=== PATIENT | male | born 1990 | race Asian ===

== ENCOUNTER 2023-01-02 19:23 | Emergency (ER) | payer OTHER, SELFPAY ==
[2023-01-02 19:33] VITALS: BP 139/93; PULSE 91; RESP 18; TEMP 36.7; O2SAT 98; BMI 29.2
--- NOTE | 2023-01-02 19:37 | ED_ITS ---
HPI - Back Pain/Injury General Chief Complaint: Back Pain/Injury Stated Complaint: 12/31 hurt lower back, pain, dif. rotating and walk Time Seen by Provider: 01/02/23 19:37 Source: patient History of Present Illness HPI Narrative: 32-year-old gentleman with history of depression, anxiety and mild intermittent asthma presents with acute onset low back pain. He describes working in the yard 48 hours ago and having some tightness across his low back that has prog ressed over the ensuing 48 hours to significant spasm in any tenderness with rotational movement. He was able to walk in after driving himself here. He states he saw a chiropractor yesterday who felt that his right hip was slightly off tried some minor adjustments that helped for a few minutes but did not persist. He took ibuprofen in the middle of the night and did not find it particularly useful. Has not had symptoms like this previously. He denies any recent spinal instrumentation, fevers, IV drug use or specific trauma. Related Data Previous Rx's Medication Instructions Recorded albuterol sulfate 90 mcg/actuation 2 puff INH Q4-6HP #1 ea 04/26/17 aerosol inhaler (Ventolin HFA) metoprolol succinate 25 mg 25 mg PO QDAY ##30 06/23/17 tablet,extended release 24 hr (Toprol XL) bupropion HCl 300 mg 24 hr tablet, 300 mg PO QDAY #30 tabs 10/20/17 extended release (Wellbutrin XL) fluoxetine 40 mg capsule 40 mg PO QDAY #30 caps 12/15/17 methylphenidate HCl 36 mg 36 mg PO QDAY ##30 12/15/17 tablet,extended release 24 hr propranolol 10 mg tablet 10 mg PO BIDP PRN #60 tabs 12/15/17 Allergies Allergy/AdvReac Type Severity Reaction Status Date / Time No Known Drug Allergies Allergy Unverified 02/09/18 14:00 Review of Systems Review of Systems Narrative: Pertinent positive and negative findings as per HPI Patient History Medical History ADHD (attention deficit hyperactivity disorder), predominantly hyperactive impulsive type Anxiety Depression Social History Smoking Status: Never smoker Smoking Status: Never smoker alcohol intake frequency: a few times a month Substance Use Type: marijuana Exam Initial Vital Signs Initial Vital Signs: Vital Signs Temperature 98.0 F 01/02/23 19:33 Pulse Rate 91 H 01/02/23 19:33 Respiratory Rate 18 01/02/23 19:33 Blood Pressure 139/93 H 01/02/23 19:33 Pulse Oximetry 98 01/02/23 19:33 Oxygen Delivery Method Room Air 01/02/23 19:33 General: Alert appropriate in no acute distress Respiratory: Able to speak in full sentences, no obvious respiratory distress Skin: No obvious rashes, warm and dry Neurologic: Grossly intact no obvious asymmetries or abnormalities. Reflexes are symmetrical bilaterally in lower extremities. There is no paresthesia appreciated. Spine: Moderate paraspinous muscle spasm from approximately T8-L2 bilaterally. No midline point tenderness. No flank pain. Psych: appropriate insight and affect, cooperative Course Vital Signs Vital signs: Vital Signs - 8 hr 01/02/23 19:33 Temperature 98.0 F Pulse Rate 91 H Respiratory Rate 18 Blood Pressure 139/93 H Pulse Oximetry 98 Oxygen Delivery Method Room Air MDM - Back Pain/Injury MDM Narrative Medical decision making narrative: CC: Acute bilateral low back pain Complicating co-morbidities: Depression Data collected from: patient Differential considered: Acute muscular spasm. Disc injury, the lack of any red flags I do not suspect epidural abscess, fractures including acute compression fractures. Exam documented above, pertinent findings include: Paraspinous muscle spasm without midline tenderness Imaging studies independently reviewed: Given history and physical, x-rays are not indicated today Discussion: Acute paraspinous spasm in the low thoracic to upper back range. Bilateral palpable on exam. He was given a shot of Toradol in the emergency department. Will be discharged home with a couple of tablets of oxycodone to use over the next 24 hours. Recommended ice and heat to help with muscle spasm, continue gentle activity and consideration of repeat chiropractic visit in a couple of days once spasm is improved. Questions are answered and he is safe for discharge home Discharge Plan Departure Patient Disposition: Home Clinical Impression: Acute back pain Instructions: DI for Back Spasm Activity Restrictions/Additional Instructions: Thank you for coming in today Fortunately, your history and exam are all very consistent with muscle spasm and do not suggest any acute life-threatening abnormalities or acute spinal where spinal cord injury. Typically pain is worse 24-48 hours after the injury, which means today for you. It typically improves over the next week. Using 400 mg of ibuprofen (2 [id number] pills) and 1 Tylenol every 6 hours can be very helpful in controlling pain. For severe pain you can use 400 mg of ibuprofen and 1 Percocet. Alternating ice and heat can help with breaking the muscle spasm. Continuing to be moderately active and at least walking will help get you back to more comfortable more quickly. Once the spasm isn't quite so bad, you might find that an additional chiropractic visit is more effective and longer lasting. If you find that you are getting worse or develop any new symptoms, please feel free to return to the emergency department for further evaluation. Prescriptions: No Action albuterol sulfate [Ventolin HFA] 90 MCG/PUFF HFA aerosol inhaler 2 puff INH Q4-6HP Qty: 1 1RF metoprolol succinate [Toprol XL] 25 MG tablet extended release 24 hr 25 mg PO QDAY Qty: 30 3RF bupropion HCl [Wellbutrin XL] 300 MG tablet extended release 24 hr 300 mg PO QDAY Qty: 30 1RF fluoxetine 40 MG capsule 40 mg PO QDAY Qty: 30 2RF methylphenidate HCl 36 MG tablet extended release 24hr 36 mg PO QDAY Qty: 30 0RF propranolol 10 MG tablet 10 mg PO BIDP PRNQty: 60 0RF Referrals: Camacho Thomas MD [Non-Staff] - Stand Alone Forms: Patient Portal/API
[2023-01-02] MEDS: KETOROLAC 30 MG/ML VIAL IM (19:55)
[2023-01-02] MEDS: OXYCODONE/APAP 5/325 PREPACK 1 BOTTLE MISC (19:55)
== END 2023-01-02 20:04 | disposition home or self-care (01) ==
PROVIDERS: Emergency Provider Emergency Medicine; Family Provider Physician Assistant
DX: M54.50 Low back pain, unspecified (principal)
CPT/HCPCS: 96372; 99283; J1885

== ENCOUNTER 2023-03-22 20:48 | Emergency (ER) | payer OTHER, SELFPAY ==
[2023-03-22 20:53] VITALS: BP 147/108; PULSE 75; RESP 16; TEMP 36.3; O2SAT 97; BMI 29.9
[2023-03-22 23:32] VITALS: BP 139/87; PULSE 68; RESP 16; O2SAT 99
[2023-03-23] VITALS: BP 149/97; PULSE 65; RESP 18; O2SAT 97
--- NOTE | 2023-03-23 00:35 | ED_ITS ---
HPI - Back Pain/Injury General Chief Complaint: Back Pain/Injury Stated Complaint: back spasms Time Seen by Provider: 03/22/23 23:59 Source: patient History of Present Illness HPI Narrative: Patient is a 32-year-old male history of depression anxiety presents today with right-sided flank pain. He reports that he was vacuuming when he instantly it spasm. It is not radiating hurts to breathe hurts to move. No nausea or vomiting. This happened to him once before it slowly got little bit better. He has an icy hot patch on there. He is not yet taken Tylenol or ibuprofen for it he says ibuprofen does not work. Related Data Previous Rx's Medication Instructions Recorded albuterol sulfate 90 mcg/actuation 2 puff INH Q4-6HP #1 ea 04/26/17 aerosol inhaler (Ventolin HFA) metoprolol succinate 25 mg 25 mg PO QDAY ##30 06/23/17 tablet,extended release 24 hr (Toprol XL) bupropion HCl 300 mg 24 hr tablet, 300 mg PO QDAY #30 tabs 10/20/17 extended release (Wellbutrin XL) fluoxetine 40 mg capsule 40 mg PO QDAY #30 caps 12/15/17 methylphenidate HCl 36 mg 36 mg PO QDAY ##30 12/15/17 tablet,extended release 24 hr propranolol 10 mg tablet 10 mg PO BIDP PRN #60 tabs 12/15/17 cyclobenzaprine 5 mg tablet 5 mg PO TID PRN muscle spasm #10 03/23/23 tabs hydrocodone 5 mg-acetaminophen 325 1 tab PO Q6H PRN pain #10 tabs 03/23/23 mg tablet Allergies Allergy/AdvReac Type Severity Reaction Status Date / Time No Known Drug Allergies Allergy Unverified 02/09/18 14:00 Review of Systems Review of Systems ROS Unobtainable: All systems reviewed & are unremarkable except as noted in HPI and below Patient History Medical History ADHD (attention deficit hyperactivity disorder), predominantly hyperactive impulsive type Anxiety Depression Social History Smoking Status: Never smoker Smoking Status: Never smoker alcohol intake frequency: a few times a month Substance Use Type: marijuana Exam Initial Vital Signs Initial Vital Signs: Vital Signs Temperature 97.4 F L 03/22/23 20:53 Pulse Rate 75 03/22/23 20:53 Respiratory Rate 16 03/22/23 20:53 Blood Pressure 147/108 H 03/22/23 20:53 Pulse Oximetry 97 03/22/23 20:53 Oxygen Delivery Method Room Air 03/22/23 20:53 GENERAL: Alert well-appearing 32-year-old male CARDIOVASCULAR: peripheral pulses in tact, cap refill <2 sec RESPIRATORY: No respiratory distress, speaks in full sentences without difficulty BACK: No vertebral tenderness no step-off left-sided pain reproducible to palpation EXTREMITIES: Normal range of motion, no clubbing or edema. Neurovascularly intact NEUROLOGICAL: Cranial nerves II through XII grossly intact. Normal gait and speech. SKIN: Warm, dry, no petechiae, no rashes or lesions. Course Orders Ordered: Discontinued Medications Hydrocodone Bitart/Acetaminophen (Hydrocodone/Acet 5/325 Prepack) [address] [facility] Stop: 03/23/23 00:40 Last Admin: 03/23/23 00:51 Dose: 1 bottle Documented By: CHRISTINE Cyclobenzaprine HCl (Cyclobenzaprine 10 Mg Prepack) 1 bottle [facility] SEEINSTR ONE Stop: 03/23/23 00:40 Last Admin: 03/23/23 00:51 Dose: 1 bottle Documented By: CHRISTINE Ketorolac Tromethamine (Ketorolac 30 Mg/Ml Vial) 30 mg IM NOW ONE Stop: 03/23/23 00:40 Last Admin: 03/23/23 00:51 Dose: 30 mg Documented By: CHRISTINE Vital Signs Vital signs: Vital Signs - 8 hr 03/22/23 20:53 03/22/23 23:32 03/23/23 00:00 Temperature 97.4 F L Pulse Rate 75 68 65 Respiratory Rate 16 16 18 Blood Pressure 147/108 H 139/87 149/97 H Pulse Oximetry 97 99 97 Oxygen Delivery Method Room Air Room Air Room Air MDM - Back Pain/Injury MDM Narrative Medical decision making narrative: 32-year-old male with left-sided pain with injury from vacuuming. Hurts to breathe and move musculoskeletal sprain. No numbness tingling or weakness in the leg no evidence of cauda equina. He is not had any change in bowel bladder habits. Discharge Plan Departure Patient Disposition: Home Clinical Impression: Back pain Instructions: DI for Back Spasm Activity Restrictions/Additional Instructions: *You have been diagnosed with back spasm *What to do: Increase activity as tolerated light stretches *Continue to take medications as directed --> [facility] Motrin 600 mg every 6 hours if needed for aref-ug-kzugrkdr pain [place] 1 tablet every 6 hours if needed for severe pain Flexeril 5 mg every 8 hours if needed for muscle spasm *Follow up with your primary care provider in 2-3 days or call [phone] *Return to ER if you should have increased back pain numbness tingling weakness and leg loss of bladder or any new, worsening or concerning symptoms CONTROLLED SUBSTANCE DISCHARGE (Narcotoic/benzodiazepine/Flexeril/Phenergan) 1. You have been prescribed narcotic medications, it does have acetaminophen/Tylenol/paracetamol in it, DO NOT TAKE MORE THAN 4,00mg in 24 hours of Tylenol. TRAMADOL DOES NOT CONTAIN TYLENOL 2. Please understand that we cannot provide further refills of narcotics, benzodiazepines or controlled substances through the ED and her pain management will need to be through your provider. 3. While on these medications you cannot drive or operate heavy machinery. 4. You cannot sign legal documents or perform any duties such as this. 5. As long as you're taking opiate pain medications he should also be taking a stool softener such as Colace, Dulcolax, MiraLAX or prune juice, to help avoid constipation. Prescriptions: New hydrocodone-acetaminophen 5-325 mg tablet 1 tab PO Q6H PRN (Reason: pain) Qty: 10 0RF cyclobenzaprine 5 mg tablet 5 mg PO TID PRN (Reason: muscle spasm) Qty: 10 0RF No Action albuterol sulfate [Ventolin HFA] 90 MCG/PUFF HFA aerosol inhaler 2 puff INH Q4-6HP Qty: 1 1RF metoprolol succinate [Toprol XL] 25 MG tablet extended release 24 hr 25 mg PO QDAY Qty: 30 3RF bupropion HCl [Wellbutrin XL] 300 MG tablet extended release 24 hr 300 mg PO QDAY Qty: 30 1RF fluoxetine 40 MG capsule 40 mg PO QDAY Qty: 30 2RF methylphenidate HCl 36 MG tablet extended release 24hr 36 mg PO QDAY Qty: 30 0RF propranolol 10 MG tablet 10 mg PO BIDP PRNQty: 60 0RF Referrals: ProviderMeek [Primary Care Provider] - Stand Alone Forms: Patient Portal/API
[2023-03-23] MEDS: CYCLOBENZAPRINE 10 MG PREPACK 1 BOTTLE MISC (00:51)
[2023-03-23] MEDS: HYDROCODONE/ACET 5/325 PREPACK 1 BOTTLE MISC (00:51)
[2023-03-23] MEDS: KETOROLAC 30 MG/ML VIAL IM (00:51)
== END 2023-03-23 00:59 | disposition home or self-care (01) ==
PROVIDERS: Emergency Provider Emergency Medicine; Family Provider Physician Assistant
DX: M54.9 Dorsalgia, unspecified (principal); M62.830 Muscle spasm of back
CPT/HCPCS: 96372; 99283; J1885

== ENCOUNTER 2024-01-08 21:52 | Emergency (ER) | payer OTHER, SELFPAY ==
[2024-01-08 21:57] VITALS: BP 148/100; PULSE 65; RESP 16; O2SAT 97
[2024-01-08 22:15] VITALS: TEMP 37
--- NOTE | 2024-01-08 22:48 | ED.NECK ---
HPI - Neck Pain/Injury General Chief Complaint: Neck Pain/Injury Stated Complaint: medication reaction Time Seen by Provider: 01/08/24 22:24 Source: patient, RN notes reviewed and old records reviewed Mode of arrival: Ambulatory Limitations: no limitations History of Present Illness HPI Narrative: 33-year-old male with history of hypertension, chronic migraines, ADHD who presents with concern for possible medication reaction. Patient was started on Ajovy injections, lamotrigine and sumatriptan 3 days ago. Patient has had Ajovy injections in the past and found that very helpful. He has been off of them for a couple of years. The other 2 medications or new to him. He is also on clonidine and propranolol and losartan as his other daily medications. Patient states he is just felt body aches all over, no fevers that he is aware of. No nasal congestion but a little bit of sore throat. He felt like the right side is a little bit more swollen than the left. He denies any chest pain or shortness of breath. He has had some mild nausea but no vomiting. He denies any other GI or urinary symptoms. He states there was a little bit of redness and itching at the site of where he had his injection for his Ajovy. Redness has improved but still little bit of itching and he feels generally itchy all over. No other rashes or skin changes. He has not had any mucous membrane issues or blistering. He states when he takes a shower the water feels very hot almost like he has a sunburn. Patient denies any major surgeries. No known drug allergies. No tobacco, alcohol or recreational drugs. His medications were prescribed by his primary care at [facility]. Related Data Previous Rx's Medication Instructions Recorded albuterol sulfate 90 mcg/actuation 2 puff INH Q4-6HP #1 ea 04/26/17 aerosol inhaler (Ventolin HFA) metoprolol succinate 25 mg 25 mg PO QDAY ##30 06/23/17 tablet,extended release 24 hr (Toprol XL) bupropion HCl 300 mg 24 hr tablet, 300 mg PO QDAY #30 tabs 10/20/17 extended release (Wellbutrin XL) fluoxetine 40 mg capsule 40 mg PO QDAY #30 caps 12/15/17 methylphenidate HCl 36 mg 36 mg PO QDAY ##30 12/15/17 tablet,extended release 24 hr propranolol 10 mg tablet 10 mg PO BIDP PRN #60 tabs 12/15/17 cyclobenzaprine 5 mg tablet 5 mg PO TID PRN muscle spasm #10 03/23/23 tabs hydrocodone 5 mg-acetaminophen 325 1 tab PO Q6H PRN pain #10 tabs 03/23/23 mg tablet Allergies Allergy/AdvReac Type Severity Reaction Status Date / Time No Known Drug Allergies Allergy Unverified 02/09/18 14:00 Review of Systems Review of Systems ROS Unobtainable: All systems reviewed & are unremarkable except as noted in HPI and below Patient History Medical History ADHD (attention deficit hyperactivity disorder), predominantly hyperactive impulsive type Anxiety Depression Social History Smoking Status: Never smoker Smoking Status: Never smoker alcohol intake frequency: a few times a month Substance Use Type: marijuana Exam Narrative Exam Narrative: GEN: well nourished, well appearing male, alert and oriented x 3, patient appears to be in mild distress. HEENT: Atraumatic, pupils are equal round reactive to light, extraocular movements are intact, nares are clear, TMs are clear with no fluid, there is no conjunctival pallor. Throat is clear without any exudates, erythema, tonsillar enlargement or uvular deviation, normal speech. Right cervical lymphadenopathy. HEART: Regular rate and rhythm without murmur, clicks, rubs. LUNGS:Lungs clear to auscultation, no wheezes, rales, crackles, chest moves symmetrically ABD:bowel sounds normal, soft, non-tender, no guarding, rebound, rigidity, no masses noted, no hepatosplenomegaly :No CVA tenderness MSCL: Non-tender, no muscle atrophy, muscles strength 5/5 upper and lower extremities, full range of motion, normal gait NEURO:CN 2-12 intact, sensation normal SKIN: No rash, erythema, no blisters or vesicles, no ecchymosis or other skin changes. Initial Vital Signs Initial Vital Signs: Vital Signs Pulse Rate 65 01/08/24 21:57 Respiratory Rate 16 01/08/24 21:57 Blood Pressure 148/100 H 01/08/24 21:57 Pulse Oximetry 97 01/08/24 21:57 Oxygen Delivery Method Room Air 01/08/24 21:57 Course Orders Ordered: ED Orders 01/08/24 22:21 Lamotrigine Lamictal Stat 01/08/24 23:29 Respiratory Panel (Film Array) Stat Strep Grp A by PCR Rapid Stat Discontinued Medications Dexamethasone (Dexamethasone 10 Mg/Ml Vial) 10 mg IV NOW ONE Stop: 01/08/24 23:10 Last Admin: 01/08/24 23:24 Dose: 10 mg Documented By: ANASTASIA Vital Signs Vital signs: Vital Signs - 8 hr 01/08/24 21:57 01/08/24 22:15 01/09/24 01:37 Temperature 98.6 F Pulse Rate 65 67 Respiratory Rate 16 16 Blood Pressure 148/100 H 127/86 Pulse Oximetry 97 98 Oxygen Delivery Method Room Air Room Air MDM - Neck Pain/Injury Lab Data Labs: Lab Results 01/08/24 Range/Units 23:29 Chlamy pneumoniae PCR Not detected (Not Detect) Adenovirus (PCR) Not detected (Not Detect) B.parapertussis DNA PCR Not detected (Not Detecte) Coronavirus OC43 (PCR) Not detected (Not Detect) Coronavirus HKU1 (PCR) Not detected (Not Detect) Coronavirus 229E (PCR) Not detected (Not Detect) SARS-CoV-2 (PCR) Not detected (Not Detecte) Coronavirus NL63 (PCR) Not detected (Not Detect) Human Metapneumovir PCR Not detected (Not Detect) Influenza Type A (PCR) Not detected (Not Detect) Influenza Type B (PCR) Not detected (Not Detect) M. pneumoniae (PCR) Not detected (Not Detect) Parainfluenza 1 (PCR) Not detected (Not Detect) Parainfluenza 2 (PCR) Not detected (Not Detect) Parainfluenza 3 (PCR) Not detected (Not Detect) Parainfluenza 4 (PCR) Not detected (Not Detect) RSV (PCR) Not detected (Not Detect) Entero/Rhino (PCR) Not detected (Not Detect) Group A Strep (PCR) Negative (Negative) MDM Narrative Medical decision making narrative: 33-year-old male with symptoms somewhat but sound like viral symptoms. Patient did start 3 new medications 1 he has had before. He noticed some itching at his injection site of his Ajovy no other redness. He does not appear to be having any sort of significant anaphylactic or allergic reaction. It has been going on for the past 2 days with no other changes. He noticed some swelling of the right side of his throat but none is visualized. Tonsils are not enlarged. Patient has a normal speech he states it has not rapidly progressive. Discussed with patient possible medication reaction versus viral prodrome versus other. We will give a dose of dexamethasone. Discussed holding his medications for several days and then restarting individually if rapid strep and respiratory panel are negative. Discharge Plan Departure Patient Disposition: Home Clinical Impression: Medication reaction Activity Restrictions/Additional Instructions: Follow up with your physician for recheck, talk with your physician about your symptoms. I did send lamotrigine or Lamictal level this is a send out lab and currently pending but unlikely to be elevated since she just started your new medication. Some of your symptoms are consistent with a viral illness but your rapid strep is negative, your respiratory panel is also negative. You can take Benadryl 1-2 tablets every 6 hours as needed for itching. There is a possibility of medication reaction, I would recommend stopping your medications and restarting them individually to see if you have recurrent symptoms. Please return for rapidly worsening symptoms fevers, swelling of your tongue airway or lips, new chest pain or shortness of breath, persistent vomiting, new rash or any blisters or vesicles or other new or concerning changes. Prescriptions: No Action albuterol sulfate [Ventolin HFA] 90 MCG/PUFF HFA aerosol inhaler 2 puff INH Q4-6HP Qty: 1 1RF metoprolol succinate [Toprol XL] 25 MG tablet extended release 24 hr 25 mg PO QDAY Qty: 30 3RF bupropion HCl [Wellbutrin XL] 300 MG tablet extended release 24 hr 300 mg PO QDAY Qty: 30 1RF fluoxetine 40 MG capsule 40 mg PO QDAY Qty: 30 2RF methylphenidate HCl 36 MG tablet extended release 24hr 36 mg PO QDAY Qty: 30 0RF propranolol 10 MG tablet 10 mg PO BIDP PRNQty: 60 0RF hydrocodone-acetaminophen 5-325 mg tablet 1 tab PO Q6H PRN (Reason: pain) Qty: 10 0RF cyclobenzaprine 5 mg tablet 5 mg PO TID PRN (Reason: muscle spasm) Qty: 10 0RF Referrals: Provider,Meek RENDON [Primary Care Provider] - Stand Alone Forms: Patient Portal/API
[2024-01-08 23:02] VITALS: BMI 29.9
[2024-01-08] MEDS: DEXAMETHASONE 10 MG/ML VIAL IV (23:24)
[2024-01-08 23:42] LABS: Strep Grp A by PCR Rapid Negative (Negative)
[2024-01-09 00:53] LABS: Adenovirus Not Detected (Not Detect); B. parapertussis Not Detected (Not Detecte); Bordetella pertussis Not Detected (Not Detect); Chlamydophila pneumoniae Not Detected (Not Detect); Coronavirus 229E Not Detected (Not Detect); Coronavirus HKU1 Not Detected (Not Detect); Coronavirus NL 63 Not Detected (Not Detect); Coronavirus OC43 Not Detected (Not Detect); Human Metapneumovirus Not Detected (Not Detect); Human Rhinovirus/Enterovirus Not Detected (Not Detect); Influenza A Not Detected (Not Detect); Influenza B Not Detected (Not Detect); Mycoplasma pneumoniae Not Detected (Not Detect); Parainfluenza Virus 1 Not Detected (Not Detect); Parainfluenza Virus 2 Not Detected (Not Detect); Parainfluenza Virus 3 Not Detected (Not Detect); Parainfluenza Virus 4 Not Detected (Not Detect); Respiratory Syncytial Virus Not Detected (Not Detect); SARS- CoV-2 Not Detected (Not Detecte)
[2024-01-09 01:37] VITALS: BP 127/86; PULSE 67; RESP 16; O2SAT 98
[2024-01-11 14:16] LABS: Lamotrigine Lamictal <1.0 ug/mL (2.0-20.0)
== END 2024-01-09 01:40 | disposition home or self-care (01) ==
PROVIDERS: Emergency Provider Emergency Medicine; Family Provider Physician Assistant
DX: L29.9 Pruritus, unspecified (principal); R52 Pain, unspecified; T50.905A Adverse effect of unspecified drugs, medicaments and biological substances, initial encounter
CPT/HCPCS: 36415; 80175; 87633; 87651; 99284; J1100

== ENCOUNTER → 2025-03-01 06:33 | Outpatient (CLI) | payer OTHER, SELFPAY ==
--- NOTE | 2025-03-01 06:35 | DI.CT.S_ITS ---
PROCEDURE: CT SINUS SCREEN WO CON INDICATIONS: nasal obstruction TECHNIQUE: Noncontrast 3.0 mm axial images acquired from the frontal sinuses to the mid- sella, with coronal and sagittal reformats. For radiation dose reduction, the following was used: automated exposure control, adjustment of mA and/or kV according to patient size. COMPARISON: None. FINDINGS: Image quality: Excellent. Sinuses: Sinuses are clear. No mucosal thickening, mucous retention//mucoceles or fluid levels. Ostiomeatal Complexes: Ostiomeatal complexes are patent. Mild narrowing on the right secondary to curvature of the right inferior turbinate. Miscellaneous: Visualized intra-orbital contents are normal. No lynn bullosa or paradoxical turbinate curvature. No nasal septal deviation. IMPRESSION: Sinuses are clear. Dictated by: Megha Guthrie M.D. on 03/02/2025 at 16:20 Approved by: Megha Guthrie M.D. on 03/02/2025 at 16:22
== END ==
LOC: CT 06:34
PROVIDERS: Family Provider Physician Assistant; PCP Internal Medicine; Referring Provider Otolaryngology; Visit Provider Otolaryngology
DX: J32.4 Chronic pansinusitis (principal); J34.2 Deviated nasal septum; J34.89 Other specified disorders of nose and nasal sinuses; J34.3 Hypertrophy of nasal turbinates
CPT/HCPCS: 70486